=== PATIENT | female | born 1950 | race African-American/Black ===

== ENCOUNTER 2021-05-22 08:54 | Day surgery (SDC) | payer MEDICARE ==
[2021-05-17 13:42] VITALS: BMI 22.2
[~2021-05-22 08:54] MED LIST: LACTATED RINGERS 1,000 ML IV SCH
[2021-05-22 09:18] VITALS: RESP 16; TEMP 98
[2021-05-22] MEDS ORDERED: LIDOCAINE 1% (10MG/ML) FOR IV START INTRADERMA ONE (09:20)
[2021-05-22] MEDS ORDERED: MIDAZOLAM 2 MG/2 ML VIAL ONE (09:24)
[2021-05-22] MEDS ORDERED: fentaNYL (PF) 50 MCG/ML 2 ML AMP ONE (09:24)
[2021-05-22] MEDS ORDERED: PROPOFOL 10 MG/ML 20 ML VIAL IV ONE (09:24)
--- NOTE | 2021-05-22 09:31 | P.GSHP ---
History of Present Illness H&P Date: 05/22/21 Chief Complaint: Colon cancer screening Patient here today for colonoscopy. Last colonoscopy 6 years ago. Patient with personal history of colon polyps unknown type. No bowel complaints. No family history of colon cancer. Past Medical History Past Medical History: Hyperlipidemia, Hypertension History of Any Multi-Drug Resistant Organisms: None Reported Past Surgical History: Tubal Ligation Additional Past Surgical History / Comment(s): colonoscopies Past Anesthesia/Blood Transfusion Reactions: No Reported Reaction Smoking Status: Never smoker - Past Family History Mother Family Medical History: Cancer Sister(s) Family Medical History: Cancer Medications and Allergies Home Medications Medication Instructions Recorded Confirmed Type Benazepril [Lotensin] 10 mg PO DAILY 09/26/14 05/17/21 History Carvedilol [Coreg] 3.125 mg PO DAILY 05/17/21 05/17/21 History Cholecalciferol [Vitamin D3 (25 25 mcg PO DAILY 05/17/21 05/17/21 History Mcg = 1000 Iu)] Rosuvastatin Calcium [Crestor] 5 mg PO DAILY 05/17/21 05/17/21 History Allergies Allergy/AdvReac Type Severity Reaction Status Date / Time No Known Allergies Allergy Verified 05/22/21 09:11 Surgical - Exam Vital Signs Temp Pulse Resp BP Pulse Ox 98.0 F 111 H 16 169/98 100 05/22/21 09:17 05/22/21 09:17 05/22/21 09:17 05/22/21 09:17 05/22/21 09:17 Physical exam: General: Well-developed, well-nourished HEENT: Normocephalic, sclerae nonicteric Abdomen: Nontender, nondistended Extremities: No edema Neuro: Alert and oriented Assessment and Plan (1) Colon cancer screening Narrative/Plan: Proceed with colonoscopy at this time Current Visit: Yes Status: Acute Code(s): Z12.11 - ENCOUNTER FOR SCREENING FOR MALIGNANT NEOPLASM OF COLON SNOMED Code(s): 989005147
--- NOTE | 2021-05-22 09:44 | P.PCN ---
Date of Procedure: 05/22/21 Procedure(s) Performed: PREOPERATIVE DIAGNOSIS: History of polyps, screening POSTOPERATIVE DIAGNOSIS: Severe diverticulosis PROCEDURE: Colonoscopy ANESTHESIA: MAC SURGEON: Anish Curtis M.D. SPECIMENS: None ENDOSCOPIC PROCEDURE: The patient was placed on the endoscopy table in the left decubitus position. The Olympus colonoscope was inserted into the anus and passed under direct visualization to the base of the cecum. The appendiceal orifice was visualized. From that point the scope was slowly withdrawn inspecting all surfaces carefully. There were no neoplastic inflammatory or polypoid lesions throughout the cecum, ascending, transverse, descending, sigmoid and rectum. There was severe extensive diverticulosis noted throughout the colon. Digital rectal examination was normal. The patient was taken to the recovery room in stable condition per anesthesia guidelines. RECOMMENDATIONS: Resume diet. Follow colonoscopy in 5-10 years.
[2021-05-22 10:00] VITALS: BP 150/92; PULSE 102
== END 2021-05-22 10:32 ==
LOC: ORWHC2ENDO 08:54
PROVIDERS: ATTEND Surgery
DX: Z12.11 Encounter for screening for malignant neoplasm of colon (principal); K57.90 Diverticulosis of intestine, part unspecified, without perforation or abscess without bleeding; E78.5 Hyperlipidemia, unspecified; I10 Essential (primary) hypertension; Z86.010 Personal history of colon polyps
CPT/HCPCS: 45378; J2250; J3010; J2704

== ENCOUNTER → 2022-03-26 | Outpatient (CLI) | payer MEDICARE ==
--- NOTE | 2022-03-26 19:50 | CT ---
EXAMINATION TYPE: CT abdomen pelvis w con CT DLP: 481.50 mGycm, Automated exposure control for dose reduction was used. DATE OF EXAM: 03/26/2022 5:04 PM COMPARISON: None. CLINICAL INDICATION:Female, 71 years old with history of R10.32 Left lower quadrant pain; lower abdom inal pain TECHNIQUE: Axial CT of the abdomen and pelvis. Sagittal and coronal reformats were created on a [employer] workstation. Contrast used:100 mL of Isovue 300 with IV Contrast, Oral contrast used: with Oral Contrast FINDINGS: LOWER CHEST: Heart is mildly enlarged for size is coronary artery atherosclerosis as well as aortic v alve calcifications. ABDOMEN LIVER: Unremarkable Hepatic steatosis. GALLBLADDER AND BILE DUCTS: Unremarkable. PANCREAS: Unremarkable. SPLEEN: Unremarkable. ADRENAL GLANDS: Unremarkable. KIDNEYS AND URETERS: No evidence of hydronephrosis or renal calculus. Left renal cyst is present. PELVIS BLADDER: Unremarkable REPRODUCTIVE: Unremarkable. ABDOMEN & PELVIS STOMACH AND BOWEL: There is a moderate to large stool burden throughout the colon. Scattered clonic d iverticula are seen throughout the colon. No evidence of bowel obstruction. PERITONEUM: No evidence of pneumoperitoneum or free fluid. VASCULATURE: No evidence of aortic aneurysm. Mild atherosclerosis of the arterial vasculature. MUSCULOSKELETAL: No acute osseous abnormalities, mild multilevel disc degeneration changes are seen t hroughout the spine. LYMPH NODES: No gross evidence for lymphadenopathy. SOFT TISSUE/ABDOMINAL WALL: Unremarkable IMPRESSION: 1. No evidence of acute intra-abdominal process. There is extensive colonic diverticula present with out definitive evidence for adjacent inflammation to suggest acute diverticulitis. 2. Moderate to large stool burden throughout the colon. 3. Hepatic steatosis.
== END | disposition home or self-care (01) ==
LOC: RADCTMAIN 15:03
PROVIDERS: ATTEND Internal Medicine
DX: K76.0 Fatty (change of) liver, not elsewhere classified (principal); K57.30 Diverticulosis of large intestine without perforation or abscess without bleeding
CPT/HCPCS: 82565; 84520; 74177; 36415; Q9967

== ENCOUNTER → 2022-04-23 | Outpatient (CLI) | payer MEDICARE ==
--- NOTE | 2022-04-24 09:45 | US ---
EXAMINATION TYPE: US kidneys/renal and bladder DATE OF EXAM: 04/23/2022 COMPARISON: CT 03/26/2020 CLINICAL HISTORY: 71-year-old female R31.9 HEMATURIA. Patient states having flank pain radiating to b ack, mainly on left side. TECHNIQUE: Multiple sonographic images of the kidneys and bladder are obtained. FINDINGS: EXAM MEASUREMENTS: Right Kidney: 9.7 x 4.9 x 3.9 cm Left Kidney: 9.3 x 4.8 x 5.5 cm Galley Boy notes:Suboptimal due to bowel gas Right Kidney: No hydronephrosis or masses seen Left Kidney: Mid cortical cystic lesion= 2.0 x 1.6 x 1.7 cm . No hydronephrosis. Bladder: Partially distended without gross abnormality. Right Jet seen IMPRESSION: 1. Check the patient's 03/26/2022 CT report for important addendum. 2. A benign 2 cm left renal cortical cyst. 3. No hydronephrosis.
== END | disposition home or self-care (01) ==
LOC: RADUSWWP 16:08
PROVIDERS: ATTEND Internal Medicine
DX: N28.1 Cyst of kidney, acquired (principal)
CPT/HCPCS: 76770

== ENCOUNTER 2022-05-20 08:31 | Emergency (ER) | payer MEDICARE ==
[2022-05-20 08:57] VITALS: TEMP 98.9
[2022-05-20] MEDS ORDERED: KETOROLAC 15 MG/ML 1 ML VIAL IVP STA (09:16)
[2022-05-20] MEDS ORDERED: SODIUM CHLORIDE 0.9% 1,000 ML IV STA (09:16)
--- NOTE | 2022-05-20 09:28 | ED ---
General Adult HPI - General Chief complaint: Abdominal Pain Stated complaint: Abd Pain Time Seen by Provider: 05/20/22 09:05 Source: patient, RN notes reviewed, old records reviewed Mode of arrival: ambulatory Limitations: no limitations - History of Present Illness Initial comments: Patient is a 71-year-old female with past medical history remarkable for diverticulosis who presents with acute on chronic abdominal pain. Has been doing with this pain since February. It is intermittent and comes and goes. Over the last month that has been worse. Patient has been on and buttocks for possible diverticulitis since Friday. She denies any worsening nausea or vomiting or diarrhea. Denies any blood in her stool. Denies any change in her bowel movements. Was recently taken off a constipation medication, and she has not she is somewhat more constipated intermittently. Denies any history kidney stones. Denies any left-sided flank pain. States the pain is on her left lower quadrant and comes and goes. States it has been worse lately which is why she presents for further evaluation at this time. Denies any chest pain, shortness of breath, fevers, chills, cough. Denies any dysuria or hematuria. Denies any vaginal discharge or bleeding. No history of abdominal surgeries. Presents for further evaluation at this time. - Related Data Home Medications Medication Instructions Recorded Confirmed Cholecalciferol [Vitamin D3 (25 25 mcg PO DAILY 05/17/21 05/20/22 Mcg = 1000 Iu)] Rosuvastatin Calcium [Crestor] 5 mg PO DAILY 05/17/21 05/20/22 carvediloL [Coreg] 3.125 mg PO BID 05/17/21 05/20/22 Benazepril/Hydrochlorothiazide 1 tab PO DAILY 05/20/22 05/20/22 [Benazepril-Hctz 10-12.5 mg Tab] Ciprofloxacin HCl [Cipro] 500 mg PO BID 05/20/22 05/20/22 Famotidine [Pepcid] 20 mg PO BID 05/20/22 05/20/22 metroNIDAZOLE [Flagyl] 500 mg PO TID 05/20/22 05/20/22 Previous Rx's Medication Instructions Recorded Dicyclomine [Bentyl] 10 mg PO TID PRN 7 Days #21 capsule 05/20/22 Ondansetron Odt [Zofran Odt] 4 mg PO Q8HR PRN 2 Days #6 tab 05/20/22 Allergies Allergy/AdvReac Type Severity Reaction Status Date / Time No Known Allergies Allergy Verified 05/20/22 11:08 Review of Systems ROS Statement: Those systems with pertinent positive or pertinent negative responses have been documented in the HPI. Review of Systems: CONST: Denies fever EYES: Denies blurry vision ENT: Denies nasal congestion C/V: Denies Chest pain RESP: Denies shortness of breath GI: Endorses abdominal pain : Denies dysuria SKIN: Denies rash. MSK: Denies joint pain. NEURO: Denies headache ROS Other: All systems not noted in ROS Statement are negative. Past Medical History Past Medical History: Hyperlipidemia, Hypertension History of Any Multi-Drug Resistant Organisms: None Reported Past Surgical History: Tubal Ligation Additional Past Surgical History / Comment(s): colonoscopies Past Anesthesia/Blood Transfusion Reactions: No Reported Reaction Past Psychological History: No Psychological Hx Reported Smoking Status: Never smoker - Past Family History Mother Family Medical History: Cancer Sister(s) Family Medical History: Cancer General Exam - General Exam Comments Initial Comments: General: Appears in no acute distress. HEAD: Normal with no signs of head trauma. EYES: PERRLA, EOMI, conjunctiva normal, no discharge. ENT: Hearing grossly intact, normal oropharynx. RESPIRATORY: Clear breath sounds bilaterally. No wheezes, rales, or rhonchi. C/V: Regular rate and rhythm. S1 and S2 auscultated, no edema, peripheral pulses 2+ and intact throughout ABD: Abd is soft, nontender, nondistended. No guarding. No peritoneal signs. No rebound tenderness. EXT: Normal range of motion, no obvious deformity SKIN: No rashes or lesions observed on exposed skin. NEURO: Alert and oriented 4. Limitations: no limitations Course Vital Signs 05/20/22 05/20/22 05/20/22 08:55 10:59 12:24 Temperature 98.9 F Pulse Rate 101 H 92 95 Respiratory 16 16 18 Rate Blood Pressure 146/90 155/82 148/92 O2 Sat by Pulse 100 100 98 Oximetry Medical Decision Making - Medical Decision Making Based on the patient's presentation and physical exam, I'm concerned for acute intra-abdominal process for current symptoms. Cannot rule out diverticulitis and she does have a history of diverticulosis with left lower quadrant abdominal pain. She is already being treated for with oral antibiotics, however I did recommend we obtain abdominal laboratory studies as well as CT imaging. She was in agreement this plan. We discussed treatment options here in the department she did accept IV Toradol as well as fluids. Vital signs are within acceptable limits. Screening EKG will be obtained. EKG shows no acute ischemic process. Laboratory studies are remarkable for a lactic acid within normal limits. Remainder of the labs are unremarkable. CT imaging of the abdomen and pelvis revealed no evidence of diverticulitis in the setting of diverticulosis. There is also a heterogeneous hypodense area are ill-defined mass in the lobe of the uncinate process of the pancreas which is worrisome for neoplasm. I sat down with the patient and we discussed results. I updated her on the CT imaging, and she does state that she was aware of the hospital mass in her pancreas and she is seeing a specialist at [facility] for it. I did recommend that she obtain CA 19-9. Patient was in agreement with this plan. She is feeling improved. We discussed that there is no clear etiology for her abdominal pain but she is already receiving any outpatient care that I would recommend which is including following up with a specialist Dr. Connelly at [facility]. She is due to see the specialist in 10 days. I believe it is safer to be discharged home. She'll be discharged home with ODT Gregoria Sousayl, and given a starter pack of Tylenol 3. She was in agreement with this plan. Strict return precautions were discussed. I will provide the patient with a prescription for Merry, Bentyl. I instructed the patient to follow up with their PCP in the next 1-3 days. I explained that the patient should return to the emergency department if they experience any worsening symptoms. Strict return precautions were discussed with the patient. The patient expressed understanding of these instructions. I answered all qu estions that the patient had. The patient was discharged home in good condition with their prescriptions and follow up information. - Lab Data Result diagrams: 05/20/22 09:19 05/20/22 09:19 Lab Results 05/20/22 05/20/22 05/20/22 Range/Units 09:19 09:19 09:19 WBC 4.5 (3.8-10.6) k/uL RBC 4.39 (3.80-5.40) m/uL Hgb 12.9 (11.4-16.0) gm/dL Hct 38.0 (34.0-46.0) % MCV 86.6 (80.0-100.0) fL MCH 29.4 (25.0-35.0) pg MCHC 34.0 (31.0-37.0) g/dL RDW 11.7 (11.5-15.5) % Plt Count 420 (150-450) k/uL MPV 6.8 Neutrophils % Not Reportable Neutrophils % (Manual) 50 % Lymphocytes % Not Reportable Lymphocytes % (Manual) 36 % Monocytes % Not Reportable Monocytes % (Manual) 14 % Eosinophils % Not Reportable Basophils % Not Reportable Neutrophils # Not Reportable Neutrophils # (Manual) 2.25 (1.3-7.7) k/uL Lymphocytes # Not Reportable Lymphocytes # (Manual) 1.62 (1.0-4.8) k/uL Monocytes # Not Reportable Monocytes # (Manual) 0.63 (0-1.0) k/uL Eosinophils # Not Reportable Basophils # Not Reportable Nucleated RBCs 0 (0-0) /100 WBC Manual Slide Review Performed PT 10.1 (9.0-12.0) sec INR 0.9 (<1.2) APTT 23.1 (22.0-30.0) sec Sodium (137-145) mmol/L Potassium (3.5-5.1) mmol/L Chloride (98-107) mmol/L Carbon Dioxide (22-30) mmol/L Anion Gap mmol/L BUN (7-17) mg/dL Creatinine (0.52-1.04) mg/dL Est GFR (CKD-EPI)AfAm (>60 ml/min/1.73 sqM) Est GFR (CKD-EPI)NonAf (>60 ml/min/1.73 sqM) Glucose (74-99) mg/dL Plasma Lactic Acid [place] (0.7-2.0) mmol/L Calcium (8.4-10.2) mg/dL Total Bilirubin (0.2-1.3) mg/dL AST (14-36) U/L ALT (4-34) U/L Alkaline Phosphatase (38-126) U/L Total Protein (6.3-8.2) g/dL Albumin (3.5-5.0) g/dL Amylase (30-110) U/L Lipase (23-300) U/L Urine Color Yellow Urine Appearance Clear (Clear) Urine pH 6.5 (5.0-8.0) Ur Specific [place] 1.005 (1.001-1.035) Urine Protein Negative (Negative) Urine Glucose (UA) Negative (Negative) Urine Ketones Negative (Negative) Urine Blood Negative (Negative) Urine Nitrite Negative (Negative) Urine Bilirubin Negative (Negative) Urine Urobilinogen <2.0 (<2.0) mg/dL Ur Leukocyte Esterase Large H (Negative) Urine RBC 1 (0-5) /hpf Urine WBC 1 (0-5) /hpf Ur Squamous Epith Cells 2 (0-4) /hpf Urine Bacteria Rare H (None) /hpf Urine Mucus Rare H (None) /hpf 05/20/22 05/20/22 Range/Units 09:19 09:19 WBC (3.8-10.6) k/uL RBC (3.80-5.40) m/uL Hgb (11.4-16.0) gm/dL Hct (34.0-46.0) % MCV (80.0-100.0) fL MCH (25.0-35.0) pg MCHC (31.0-37.0) g/dL RDW (11.5-15.5) % Plt Count (150-450) k/uL MPV Neutrophils % Neutrophils % (Manual) % Lymphocytes % Lymphocytes % (Manual) % Monocytes % Monocytes % (Manual) % Eosinophils % Basophils % Neutrophils # Neutrophils # (Manual) (1.3-7.7) k/uL Lymphocytes # Lymphocytes # (Manual) (1.0-4.8) k/uL Monocytes # Monocytes # (Manual) (0-1.0) k/uL Eosinophils # Basophils # Nucleated RBCs (0-0) /100 WBC Manual Slide Review PT (9.0-12.0) sec INR (<1.2) APTT (22.0-30.0) sec Sodium 134 L (137-145) mmol/L Potassium 4.2 (3.5-5.1) mmol/L Chloride 99 (98-107) mmol/L Carbon Dioxide 28 (22-30) mmol/L Anion Gap 7 mmol/L BUN 8 (7-17) mg/dL Creatinine 0.72 (0.52-1.04) mg/dL Est GFR (CKD-EPI)AfAm >90 (>60 ml/min/1.73 sqM) Est GFR (CKD-EPI)NonAf 84 (>60 ml/min/1.73 sqM) Glucose 132 H (74-99) mg/dL Plasma Lactic Acid [place] 1.0 (0.7-2.0) mmol/L Calcium 9.8 (8.4-10.2) mg/dL Total Bilirubin 0.7 (0.2-1.3) mg/dL AST 27 (14-36) U/L ALT 19 (4-34) U/L Alkaline Phosphatase 61 (38-126) U/L Total Protein 7.6 (6.3-8.2) g/dL Albumin 4.6 (3.5-5.0) g/dL Amylase 77 (30-110) U/L Lipase 143 (23-300) U/L Urine Color Urine Appearance (Clear) Urine pH (5.0-8.0) Ur Specific [place] (1.001-1.035) Urine Protein (Negative) Urine Glucose (UA) (Negative) Urine Ketones (Negative) Urine Blood (Negative) Urine Nitrite (Negative) Urine Bilirubin (Negative) Urine Urobilinogen (<2.0) mg/dL Ur Leukocyte Esterase (Negative) Urine RBC (0-5) /hpf Urine WBC (0-5) /hpf Ur Squamous Epith Cells (0-4) /hpf Urine Bacteria (None) /hpf Urine Mucus (None) /hpf - EKG Data -: EKG Interpreted by Me EKG Comments: 12-lead Electrocardiogram Interpretation Note EKG was reviewed and interpreted by myself. 12-lead ECG performed at 0928 is interpreted by me as revealing normal sinus rhythm at a rate of 100 beats per minute. [place] is normal. QRS duration of 96 ms, QTc is 388 ms.. There were no ST or T wave abnormalities to suggest myocardial ischemia or injury. R wave progression across the precordium was satisfactory. By my interpretation this EKG is non-diagnostic for acute ischemia. No prior EKG for comparison. There is a good amount of baseline artifact which does make this EKG difficult to interpret. Disposition Clinical Impression: Abdominal pain of unknown etiology Narrative: concern for pancreatic mass Disposition: HOME SELF-CARE Condition: Fair Instructions (If sedation given, give patient instructions): Abdominal Pain (ED) Additional Instructions: Follow up with your specialist and continue workup for pancreatic mass. Prescriptions: Dicyclomine [Bentyl] 10 mg PO TID PRN 7 Days #21 capsule PRN Reason: Pain Ondansetron Odt [Zofran Odt] 4 mg PO Q8HR PRN 2 Days #6 tab PRN Reason: Nausea Is patient prescribed a controlled substance at d/c from ED?: No Referrals: Katja Ma MD [Primary Care Provider] - 1-2 days Time of Disposition: 11:55
[2022-05-20 09:31] LABS: HGB 12.9 gm/dL (11.4-16.0); MCH 29.4 pg (25.0-35.0); MCV 86.6 fL (80.0-100.0); Mean Platelet Volume 6.8; Platelet Count 420 k/uL (150-450); RBC 4.39 m/uL (3.80-5.40); RDW 11.7 % (11.5-15.5); WBC 4.5 k/uL (3.8-10.6)
[2022-05-20 09:44] LABS: INR 0.9 (<1.2); Partial Thromboplastin Time 23.1 sec (22.0-30.0); Prothrombin Time 10.1 sec (9.0-12.0)
[2022-05-20 09:54] LABS: ALT 19 U/L (4-34); AST 27 U/L (14-36); African American GFR (CKD) >90 (>60 ml/min/1.73 sqM); Albumin 4.6 g/dL (3.5-5.0); Alkaline Phosphatase 61 U/L (38-126); Amylase 77 U/L (30-110); Anion Gap 7 mmol/L; Blood Urea Nitrogen 8 mg/dL (7-17); Calcium 9.8 mg/dL (8.4-10.2); Carbon Dioxide 28 mmol/L (22-30); Chloride 99 mmol/L (98-107); Glucose 132 mg/dL (74-99); Lipase 143 U/L (23-300); Non-African American GFR(CKD) 84 (>60 ml/min/1.73 sqM); Potassium 4.2 mmol/L (3.5-5.1); Sodium 134 mmol/L (137-145); Total Bilirubin 0.7 mg/dL (0.2-1.3); Total Protein 7.6 g/dL (6.3-8.2)
[2022-05-20 09:56] LABS: Appearance,Urine Clear (Clear); Bacteria,Urine Rare /hpf; Bilirubin,Urine Negative (Negative); Blood,Urine Negative (Negative); Color,Urine Yellow; Glucose,Urine (UA) Negative (Negative); Ketones,Urine Negative (Negative); Leukocyte Esterase,Urine Large (Negative); Mucus,Urine Rare /hpf; Nitrite,Urine Negative (Negative); PH, Urine 6.5 (5.0-8.0); Protein,Urine Negative (Negative); RBC,Urine 1 /hpf (0-5); Specific Gravity,Urine 1.005 (1.001-1.035); Squamous Epithelial Cell,Urine 2 /hpf (0-4); Urobilinogen,Urine <2.0 mg/dL (<2.0); WBC,Urine 1 /hpf (0-5)
[2022-05-20] MEDS ORDERED: MORPHINE SULFATE 2 MG/ML SYRINGE IVP STA (10:17)
[2022-05-20 10:32] LABS: Lymphocytes # (M) 1.62 k/uL (1.0-4.8); Monocytes # (M) 0.63 k/uL (0-1.0); Neutrophils # (M) 2.25 k/uL (1.3-7.7); Neutrophils % (M) 50 %; Nucleated Red Blood Cells 0 /100 WBC (0-0); Total Cells Counted 100
--- NOTE | 2022-05-20 11:00 | CT ---
EXAMINATION TYPE: CT abdomen pelvis w con DATE OF EXAM: 05/20/2022 HISTORY: lower abd pain x2 months CT DLP: 552.1mGycm Automated Exposure Control for Dose Reduction was Utilized. CONTRAST: CT scan of the abdomen and pelvis is performed without oral but with IV Contrast, patient injected wi th 100 mL of Isovue 300. COMPARISON: CT abdomen and pelvis March 26, 2022 FINDINGS: LUNG BASES: No significant abnormality is appreciated. LIVER/GB: No new biliary dilatation. PANCREAS: Enlarging heterogeneous ill-defined mass along the left aspect of the uncinate process tracy uring 3.3 x 3.1 cm current study increased in size from most recent prior CT abutting the second thro ugh fourth portions of the duodenal sweep and may be encasing the patent JASMYN and axial image 32. No p ancreatic ductal dilatation due to location of lesion. SPLEEN: No significant abnormality is seen. ADRENALS: Stable asymmetric thickening to left adrenal gland favoring benign lipid rich hyperplasia. KIDNEYS: Stable 2.0 cm thin-walled cyst in the left kidney coronal image 74. BOWEL: No suspicious small or large bowel dilatation. Prominent diverticulosis in the left and sigmo id colon are redemonstrated. No CT evidence for acute diverticulitis. There is wandering cecum which is fluid-filled and dilated in the pelvis on current study axial image 63 and was prior study anterio r to the liver. UTERUS/ADNEXA: Anteverted uterus. Scattered small calcified pelvic phleboliths redemonstrated. LYMPH NODES: No greater than 1cm abdominal or pelvic lymph nodes are appreciated. OSSEOUS STRUCTURES: No significant abnormality is seen. OTHER: No significant additional abnormality is seen. IMPRESSION: 1. Suspicious heterogeneous hypodense area or ill-defined mass lobe of the uncinate process of the pa ncreas worrisome for neoplasm. Clinical correlation and Follow-up advised. 2. Severe distal colonic diverticulosis without CT evidence of acute diverticulitis redemonstrated. W andering cecum redemonstrated. No bowel obstruction. No new acute findings are evident.
[2022-05-20] MEDS ORDERED: ACET/COD 300 MG/30 MG STARTER PACK 6 TAB BTL PO STA (12:11)
[2022-05-20 12:25] VITALS: BP 148/92; PULSE 95; RESP 18
== END 2022-05-20 12:26 | disposition home or self-care (01) ==
LOC: EC 08:31
DX: R10.9 Unspecified abdominal pain (principal); E78.5 Hyperlipidemia, unspecified; I10 Essential (primary) hypertension; Z79.899 Other long term (current) drug therapy
CPT/HCPCS: 36415; 93005; 80053; 82150; 83605; 83690; 85025; 85610; 85730; 81001; 74177; 99284; 96374; 96375; 96361; J2270; J1885; Q9967

== ENCOUNTER → 2022-05-21 | Outpatient (CLI) | payer MEDICARE | END | disposition home or self-care (01) | LOC: LABWHC1 10:02 | PROVIDERS: ATTEND Internal Medicine | DX: K86.9 Disease of pancreas, unspecified (principal) | CPT/HCPCS: 36415; 86301 ==

== ENCOUNTER → 2022-06-14 | Outpatient (CLI) | payer MEDICARE ==
--- NOTE | 2022-06-14 19:49 | MR ---
EXAMINATION TYPE: MR pelvis wo/w con DATE OF EXAM: 06/14/2022 COMPARISON: HISTORY: Pelvic pain, history of pancreatic cancer. CONTRAST: Standard multiplanar, multisequence MRI departmental protocol images were obtained without contrast a nd with 5.5 mL intravenous Gadavist gadolinium contrast. The pelvic ring is intact. Proximal femurs and hip joints appear normal. No hip dysplasia. No sign of avascular necrosis. Sacroiliac joints are intact. No free fluid in the pelvis. Uterus is anteverted. No endometrial mass. Bladder distends smoothly. No evidence of ascites. No sign of a bowel obstruction. No adnexal mass. No evidence of inguinal hernia . Muscle structures are symmetric. No evidence of a soft tissue mass. IMPRESSION: Negative MR scan of the pelvis. I do not see a cause for pelvic pain.
== END | disposition home or self-care (01) ==
LOC: RADMRIMAIN 17:23
PROVIDERS: ATTEND Internal Medicine Hematology & Oncology
DX: C25.0 Malignant neoplasm of head of pancreas (principal)
CPT/HCPCS: 72197; A9585